=== PATIENT | female | born 1970 | race Caucasian/White ===

== ENCOUNTER 2017-05-01 14:40 | Day surgery (SDC) | payer OTHER ==
--- NOTE | ~2017-05-01 | OP ---
PATIENT NAME: ANA LILIA LEWIS MEDICAL RECORD: [id number] :72 LOCATION:D.FORMERLY [facility] ADMISSION DATE: SURGEON: VICENTE TOUSSAINT MD DATE OF OPERATION: 05/01/2017 SURGEON: Vicente Toussaint MD ANESTHESIA: TIVA by John Lloyd CRNA PREOPERATIVE DIAGNOSIS: Right ureteropelvic junction 9-mm stone. FINDINGS: Right staghorn radiodense renal stone. Left renal stones times 2, radiodense. PROCEDURES: Cystoscopy and right ureteral stent insertion. COMPLICATIONS: None. ESTIMATED BLOOD LOSS: None. CLINICAL HISTORY: This is a 47-year-old female from [place], who has a prior history of kidney stones. She has been complaining of right upper quadrant and right flank pain for the past 3 days on a continuous basis. She came to the Emergency Room today and an ultrasound of the gallbladder was performed by the Emergency Room physician. This ultrasound did not show any gallstones in the gallbladder. The gallbladder was entirely normal. It did show right hydronephrosis and a possible 9-mm stone obstructing the right UP junction. She comes now to have a right ureteral stent inserted. test was obtained and she is not . She was given Ancef IV operations expert to the OR. DESCRIPTION OF PROCEDURE: The patient was given IV sedation. She was placed in the dorsal lithotomy position and prepped and draped. Fluoroscopy revealed a prior back surgery with Christensen rods along extensive areas of the thoracic spine. Radiodense renal stones were seen with a large cluster on the right side forming a large staghorn calculus and 2 large radiodense stones in the left kidney. Going into the bladder, she had single ureteral orifices. 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 We inserted an open-ended right ureteral catheter and a retrograde pyelogram was performed with diluted contrast. This showed the stone to be within the renal pelvis. We inserted the guidewire through the lumen of the open-ended ureteral catheter. We then removed the ureteral catheter, leaving the guidewire in place. Over the guidewire, we inserted a 6-Telugu x 22 cm right ureteral stent. Once the stent was in correct position, the guidewire was completely removed. The proximal end was seen to coil within the renal pelvis. The distal end was pushed into the bladder using a pusher. The string on the distal end of the stent is maintained. We drained the bladder through the cystoscope and then removed the scope entirely. The string was taped to the suprapubic area with a piece of Tegaderm. She will require a CT scan of the kidneys as an outpatient and most likely she will require a percutaneous nephrolithotomy in the near future. TRANSINT:[id number] Voice Confirmation ID: [id number] DOCUMENT ID: [id number] OPERATIVE REPORT [id number] ANA LILIA LEWIS ROBERT S MD CC: [id number] DICTATION DATE: 05/01/172119 [employer] SUPERVISOR: 05/02/17 0059 [facility] 05/02/17 [facility] [address] [place] [address]
[2017-05-01 15:08] LABS: BASOPHILS 0.2 % (0-2); EOSINOPHILS 0.4 % (0-7); HEMOGLOBIN 14.3 g/dL (12-16); IMMATURE GRANULOCYTES 0.3 % (0-5); LYMPHOCYTES 18.6 % (15-50); MCV 91.1 fL (80.0-100.0); MEAN PLATELET VOLUME 9.9 fL (7.4-10.4); MONOCYTES 8.1 % (2-11); NEUTROPHILS 72.4 % (40-80); PLATELET COUNT 259 10x3/uL (130-400); RBC 4.61 10x6/uL (4.00-5.40); RDW 12.3 % (11.5-14.5); WBC 10.2 10x3/uL (4.8-10.8)
[2017-05-01 15:17] LABS: ALBUMIN 3.6 g/dL (3.4-5.0); ANION GAP 12.4 mmol/L (8-16); BILIRUBIN - TOTAL 0.78 mg/dL (0.2-1.3); CALCIUM 9.6 mg/dL (8.5-10.1); CARBON DIOXIDE 27.9 mmol/L (21.0-32.0); CREATININE - SERUM 1.1 mg/dL (0.6-1.3); POTASSIUM - SERUM 3.3 mmol/L (3.5-5.1); PROTEIN - SERUM 8.4 g/dL (6.4-8.2)
[2017-05-01 15:43] LABS: APPEARANCE CLEAR (CLEAR); BILIRUBIN NEGATIVE (NEGATIVE); COLOR YELLOW (YELLOW); GLUCOSE NEGATIVE (NEGATIVE); KETONE NEGATIVE (NEGATIVE); LEUKOCYTE ESTERASE 2+ (NEGATIVE); NITRITE NEGATIVE (NEGATIVE); PROTEIN TRACE mg/dL (NEGATIVE); UROBILINOGEN NORMAL (NORMAL)
[2017-05-01 15:47] LABS: WHITE CELLS - URINE 25-50 /hpf (0-5)
[2017-05-01 15:48] LABS: BACTERIA MANY /hpf (NONE SEEN); EPITHELIAL CELLS 0-5 /hpf (0-5); MUCUS <1+ /lpf (NONE SEEN)
[2017-05-01 21:02] LABS: HCG SERUM NEGATIVE (NEGATIVE)
[2017-05-01 21:55] VITALS: BP 144/88
--- NOTE | 2017-05-01 23:46 | NUR ---
REC'D 2134 VIA BED FROM RECOVERY ROOM. AA0 X3 IV NS INFUSING RIGHT WRIST AT KVO,DENIES PAIN STATES JUST HAVING SOME BURNING SENSATION.2330 UP BATHROOM VOIDED LGE MATTHEW CHU. BLOOD TINGED URINE WITHOUT DIFFICULTY.2345)IV DC'D,DISCHARGE INSTRUCTIONS AND TWO SCRIPTS GIVEN.REFUSED WHEELCHAIR AMBULATED WITH AND NURSE AND TO CAR TOLERATED WELL
== END 2017-05-02 00:03 | disposition home or self-care (01) ==
LOC: D.SDCHOLD 14:40 → D.ER 14:40 → D.OPS 14:40 → EDSTATUS 17:27 → D.SDCHOLD 17:27 → D.MS 21:39 → D.OPS 05-02 00:03
PROVIDERS: Anesthesiology; Emergency Medicine
DX: N20.1 Calculus of ureter (principal); R10.11 Right upper quadrant pain; Z01.812 Encounter for preprocedural laboratory examination

== ENCOUNTER → 2017-05-08 08:15 | Outpatient (CLI) | payer OTHER | END | disposition home or self-care (01) | LOC: D.CT 08:15 | DX: N20.0 Calculus of kidney (principal) ==

== ENCOUNTER 2017-05-22 19:30 | Day surgery (SDC) | payer OTHER ==
--- NOTE | ~2017-05-22 | HEMODYNAMI ---
PATIENT:ANA LILIA LEWIS MEDICAL RECORD: [id number] : 72 LOCATION:[facility] ADMISSION DATE: 05/22/17 Generatedon:05/22/201712:05 Patient name: ANA LILIA LEWIS Patient #: [id number] SSN: DO B: 1970 Date of study: 05/22/2017 Page: Of Hemodynamic Procedure Report Patient Data Patient Demographics Procedure consent was obtained First Name: ANA LILIA Gender: Female Last Name: JOSHUA : 1970 Middle Initial: A Age: 47 year(s) Patient #: [id number] Race: Additional ID: [id number] Contact details [address]: [address] [place] [address] State: [place] City: [place] Zip code: [address] Admission Admission Data Admission Date: 05/22/2017 Admission Time: 8:32 Procedure Procedure Types Cath Procedure Peripheral Cath Diagnostic Procedure Nephro Nephrostomy Tubes Procedure Description Procedure Date Procedure Date: 05/22/2017 Procedure Start Time: 11:17 Procedure Staff Name Function Miles Andino RT Monitor Matias Ng MD Performing Physician Lydai Alvarez RT Scrub Sneha Bueno RN Nurse Asha Sharif RN Nurse Procedure Data Cath Procedure Fluoroscopy Diagnostic fluoroscopy Total fluoroscopy Time: time: 13.4 min 13.4 min Diagnostic fluoroscopy Total fluoroscopy dose: 259 dose: 259 mGy mGy Contrast Material Contrast Material Type Amount (ml) Isovue 300 20 Procedure Medications Medication Administration Route Dosage Versed I.V. 1 mg Fentanyl I.V. 50 mcg Versed I.V. 1 mg Fentanyl I.V. 50 mcg Versed I.V. 1 mg Fentanyl I.V. 50 mcg Versed I.V. 1 mg Fentanyl I.V. 50 mcg Fentanyl I.V. 50 mcg Hemodynamics Rest Heart Rate: 77 (bpm) Snapshots Pre Cath Intra NCS Post Cath Vital Signs Time Heart Resp SPO2 etCO2 NIBP (mmHg) Rhythm Pain Sedation Rate (ipm) (%) (mmHg) Status Level (bpm) 10:46:28 77 16 100 29.2 158/94(121) NSR 0 (11) 10(A) , No pain 10:50:48 72 18 100 30 162/87(141) NSR 0 (11) 10(A) , No pain 10:55:00 79 12 100 30.7 138/95(121) NSR 0 (11) 10(A) , No pain 10:59:10 78 16 100 23.2 146/97(130) NSR 0 (11) 10(A) , No pain 11:03:32 80 16 99 25.5 148/69(132) NSR 0 (11) 10(A) , No pain 11:07:43 83 13 99 27 151/95(119) NSR 0 (11) 10(A) , No pain 11:12:01 90 6 99 15 147/118(134) NSR 0 (11) 10(A) , No pain 11:16:19 86 16 100 28.5 149/88(120) NSR 0 (11) 10(A) , No pain 11:20:35 84 19 99 26.2 146/92(114) NSR 0 (11) 10(A) , No pain 11:24:44 80 12 97 26.2 118/82(98) NSR 0 (11) 10(A) , No pain 11:29:48 71 9 96 33.8 113/79(100) NSR 0 (11) 10(A) , No pain 11:34:02 70 8 96 34.5 112/75(91) NSR 0 (11) 10(A) , No pain 11:38:10 66 9 96 30 117/75(91) NSR 0 (11) 10(A) , No pain 11:42:17 73 7 96 37.5 106/78(98) NSR 0 (11) 10(A) , No pain 11:47:10 74 9 97 9.7 124/70(108) NSR 0 (11) 10(A) , No pain 11:51:18 80 6 95 0 127/74(86) NSR 0 (11) 10(A) , No pain 11:55:30 81 9 96 36 118/74(96) NSR 0 (11) 10(A) , No pain 11:59:38 83 8 97 36.8 116/77(111) NSR 0 (11) 10(A) , No pain 12:03:44 80 8 97 39 113/77(105) NSR 0 (11) 10(A) , No pain Medications Time Medication Route Dose Verified Delivered Reason Notes Effectivene ss by by 11:20:37 Versed I.V. 1 mg Matias Sneha for Burda, Myles RN sedation 11:20:51 Fentanyl I.V. 50 Matias Sneha for mcg Burda, Myles RN sedation 11:22:55 Versed I.V. 1 mg Matias Sneha for Burda, Myles RN sedation 11:23:08 Fentanyl I.V. 50 Matias Sneha for mcg Burda, Myles RN sedation 11:35:53 Versed I.V. 1 mg Matias Sneha for Burda, Myles RN sedation 11:36:07 Fentanyl I.V. 50 Matias Sneha for mcg Burda, Myles RN sedation 11:48:08 Versed I.V. 1 mg Matias Sneha for Burda, Myles RN sedation 11:48:18 Fentanyl I.V. 50 Matias Sneha for mcg Burda, Myles RN sedation 11:57:24 Fentanyl I.V. 50 Matias Sneha for mcg Burda, Myles RN sedation Procedure Log Time Note 10:39:00 Time tracking: Regular hours 10:39:14 Plan of Care:Hemodynamics will remain stable., Cardiac rhythm will remain stable., Comfort level will be maintained., Respiratory function will remain adequate., Patient/ family verbilizes understanding of procedure., Procedure tolerated without complication., Recovers from procedure without complications.. 10:39:20 Patient received from Outpatients to IR Alert and oriented. Tansferred to table in Prone position. 10:39:21 Correct patient and procedure confirmed by team. 10:39:25 Signed procedure consent form obtained from patient. 10:39:26 ECG and BP/O2 sat monitors applied to patient. 10:39:27 Full Disclosure recording started 10:39:28 - 10:39:32 H&P Date Dictated: 05/22/2017 H&P Addendum completed by physician on da y of procedure. (MUST COMPLETE FOR ALL OUTPATIENTS). 10:39:33 Pre-op teaching completed and patient verbalized understanding. 10:39:33 Pre-procedure instructions explained to patient. 10:39:34 Family in waiting room. 10:39:36 Patient NPO since Midnight. 10:39:42 Is the patient allergic to Iodine/contrast media? No. 10:39:51 Is patient on blood thinner?No 10:39:52 Patient diabetic? No. 10:39:54 ----Pre-sedation anethsthesia assessment.---- 10:39:54 - 10:39:57 Previous problem with sedation/anesthesia? No ? 10:39:58 Snore? No 10:39:59 Sleep apnea? No 10:40:00 Deviated septum? No 10:40:02 Opens mouth fully? No 10:40:03 Sticks out tongue? No 10:40:05 Airway obstruction? No ? 10:40:07 Dentures? No ? 10:40:11 Use device set IR Diagnostic 10:40:13 Sterile Angiographic Pack opened to sterile field. 10:40:14 Bag Decanter opened to sterile field. 10:40:47 Sharps counted by scrub and verified by R.N. 10:40:48 Alarms reviewed by R. N. 10:41:01 Right abdomen area was prepped with chlora-prep and draped in sterile fashion 10:45:20 Vital chart was started 10:45:21 Baseline sample Acquired. 10:45:26 Rhythm: sinus rhythm 10:45:39 Patient pain scale 0/10 no pain. 11:16:52 --------ALL STOP TIME OUT------ 11:16:52 Physician arrived 11:16:53 Final Timeout: patient, procedure, and site verified with staff and physician. All members of the team are in agreement. 11:16:57 Right abdomen site verified by team. 11:17:13 Physical assessment completed. ASA score P 2 - A patient with mild systemic disease as per Sneha Bueno RN. 11:17:17 Sedation plan: IV Moderate Sedation Versed, Fentanyl 11:17:32 Procedure started. 11:17:37 Local anesthetic to Abdominal area with Lidocaine 1% by Matias Ng MD.INITIAL ACCESS ONLY 11:17:47 Terumo Angled SS 180cm glide wire opened to sterile field. 11:17:50 CHIBA 20 X 15 needle opened to sterile field. 11:17:51 KIT, INTRODUCER ACCUSTICK II W/C opened to sterile field. 11:20:37 Versed 1 mg I.V. was administered by Sneha Bueon RN; for sedation; 11:20:51 Fentanyl 50 mcg I.V. was administered by Sneha Bueno RN; for sedation ; 11:22:55 Versed 1 mg I.V. was administered by Sneha Bueno RN; for sedation; 11:23:08 Fentanyl 50 mcg I.V. was administered by Sneha Bueno RN; for sedation ; 11:28:01 Full Disclosure recording stopped 11:28:47 Vital chart was started 11:33:14 EV3 NITINOL .018 80CM guide wire opened to sterile field. 11:35:53 Versed 1 mg I.V. was administered by Sneha Bueno RN; for sedation; 11:36:07 Fentanyl 50 mcg I.V. was administered by Sneha Bueno RN; for sedation ; 11:37:24 Terumo 5FR STRAIGHT 65CM glide catheter opened to sterile field. 11:37:26 DILATOR, VESSEL 4/20 opened to sterile field. 11:39:18 KIT, INTRODUCER ACCUSTICK II W/C opened to sterile field. 11:45:42 Terumo ANGLE 180L glide wire opened to sterile field. 11:45:55 Terumo TORQUE DEVICE PLASTIC .038 opened to sterile field. 11:48:08 Versed 1 mg I.V. was administered by Sneha Bueno RN; for sedation; 11:48:18 Fentanyl 50 mcg I.V. was administered by Sneha Bueno RN; for sedation ; 11:51:41 Terumo ADVANTAGE 260CM glide wire opened to sterile field. 11:53:22 Terumo 5FR ANGLED 65CM glide catheter opened to sterile field. 11:57:21 Procedure ended.(Physican Out) 11:57:24 Fentanyl 50 mcg I.V. was administered by Sneha Bueno RN; for sedation ; 11:58:01 Fluoroscopy time 13.40 minutes. 11:58:06 Fluoroscopy dose: 259 mGy 11:58:06 Flurop Dose total: 259 11:59:28 Contrast amount:Isovue 300 20ml. 12:01:04 Sharps counted by scrub and verified by R.N. 12:01:06 Insertion/operative site no bleeding no hematoma. 12:01:11 Post-op/insertion site Right Abdominal area dressed using a 4 x 4 and Tegaderm. 12:01:13 Post Procedure Pulses reassessed and unchanged 12:01:33 Post-procedure physical assessment completed. ASA score P 2 - A patient with mild systemic disease as per Matias Ng MD. 12:01:36 Post procedure instruction explained to patient.Patient verbalizes understanding. 12:01:40 Procedure and supply charges have been captured, reviewed, submitted an d are correct. 12:04:54 Report given to Outpatients. 12:04:57 Patient transfered to Outpatients with Bed. 12:05:20 Vital chart was stopped Device Usage Item Name Manufacture Quantity Catalog Hospital Part Current Minimal Lot# / Number Charge Number Stock Stock Serial# Code Sterile Cardinal 1 [id number] 5 Angiographic Health Pack Bag Decanter Microtek 1 [id number] 05002 445366 [employer] Terumo Terumo 1 [id number] 649298 207803 5 Angled SS 180cm glide wire CHIBA 20 X [employer] 1 [id number] 387983 564134 5 15 needle KIT, [place] 2 [id number] 389437 888828 170738 5 INTRODUCER Scientific ACCUSTICK II W/C EV3 NITINOL Ev3 1 [id number] 491636 400850 5 [id number] .018 80CM guide wire Terumo 5FR Terumo 1 CG505 272782 314934 5 STRAIGHT 65CM glide catheter DILATOR, [employer] 1 [id number] 362691 85545 106647 5 [id number] VESSEL 4/20 Terumo ANGLE Terumo 1 [id number] 782150 171648 516732 5 180L glide wire Terumo [place] 1 [id number] 048278 414697 598738 5 TORQUE Scientific DEVICE PLASTIC .038 Terumo Terumo 1 [id number] 650908 597322 5 ADVANTAGE 260CM glide wire Terumo 5FR Terumo 1 CG507 881020 936664 5 ANGLED 65CM glide catheter Signature Audit [place] Stage Time Signature Unsigned Intra-Procedure 05/22/2017 Miles 12:05:18 PM Thu RT (R) (CV) Signatures Monitor : Miles Signature : Thu RT Date : Time : [address] [address]
[2017-05-22 09:42] VITALS: BP 124/89; BMI 22.0
[2017-05-22 09:55] LABS: BASOPHILS 0.5 % (0-2); EOSINOPHILS 1.2 % (0-7); HEMATOCRIT 39.9 % (36.0-48.0); HEMOGLOBIN 13.6 g/dL (12-16); IMMATURE GRANULOCYTES 0.2 % (0-5); LYMPHOCYTES 35.8 % (15-50); MCH 30.4 pg (26.0-34.0); MCHC 34.1 g/dL (31.0-37.0); MCV 89.3 fL (80.0-100.0); MEAN PLATELET VOLUME 9.7 fL (7.4-10.4); MONOCYTES 8.1 % (2-11); NEUTROPHILS 54.2 % (40-80); PLATELET COUNT 289 10x3/uL (130-400); RBC 4.47 10x6/uL (4.00-5.40); RDW 12.4 % (11.5-14.5); WBC 4.3 10x3/uL (4.8-10.8)
[2017-05-22 10:03] LABS: HCG URINE NEGATIVE (NEGATIVE)
[2017-05-22 10:06] LABS: APTT 26.5 SECONDS (22.8-39.4); CALC OSMOLALITY 278 mosm/kg (275-300); CALCIUM 9.2 mg/dL (8.5-10.1); CHLORIDE - SERUM 104 mmol/L (98-107); CREATININE - SERUM 0.8 mg/dL (0.6-1.3); GLUCOSE 88 mg/dL (74-106); INR 1.07 (0.85-1.17); POTASSIUM - SERUM 3.6 mmol/L (3.5-5.1); PROTIME 13.8 SECONDS (11.6-15.0); SODIUM 139 mmol/L (136-145); UREA NITROGEN 19 mg/dL (7-18); eGFR NON AFRICAN AMERICAN 82 mL/min (90-120)
--- NOTE | 2017-05-22 14:58 | NUR ---
RESTING WITH EYES CLOSED RESP EVEN ,IV INFUSING, FAMILY AT BEDSIDE WAITING TO GO TO SURGERY, NEOHRO TUBE TO RIGHT FLANK, WITH DRESSING C/D/I
[~2017-05-22 19:30] MED LIST: BAYER CHEWABLE81 MG PO; FLOMAX0.4 MG PO; HYDROCODON-ACE1 EAC7 PO; LEVOTHYROXINE50 MCG PO; MAXALT10 MG PO
--- NOTE | 2017-05-22 20:52 | NUR ---
TO OR VIA BED DRSG. RIGHT FLANK INTACT WITH ONE SMALL SPECK DRY DARK RED BLOODY OBSERVED NO FRESH DRAINAGE NOTED
[2017-05-23 03:47] VITALS: BMI 22.2
[2017-05-23 04:00] VITALS: BP 107/63
--- NOTE | 2017-05-23 07:00 | NUR ---
REPORT RECIEVED ASSUMED CARE. PATIENT IN BED WITH IV INTACT. NO COMPLAINTS AT THIS TIME. CALL LIGHT WITHIN REACH.
[2017-05-23 08:06] VITALS: BP 121/66
--- NOTE | 2017-05-23 08:41 | NUR ---
SCD'S ON BILATERAL LE
--- NOTE | 2017-05-23 09:22 | OP ---
PATIENT NAME: ANA LILIA LEWIS MEDICAL RECORD: [id number] :72 LOCATION:D.[facility] ADMISSION DATE:05/22/17 SURGEON: ANSHUL TOUSSAINT MD DATE OF OPERATION: 05/22/2017 SURGEON: Dr. Anshul Toussaint. ANESTHESIA: General anesthesia by Jeff Shaikh CRNA. PREOPERATIVE DIAGNOSIS: Multiple right renal stones about 1 cm each times 6. FINDINGS: Multiple radiodense large caliceal stones about 6, about 1 cm each. PROCEDURES: Right percutaneous nephrolithotomy (PCNL). SPECIMENS: Stones. ESTIMATED BLOOD LOSS: Minimal. CLINICAL HISTORY: This is a 47-year-old female, who presented with right flank pain. She had an ultrasound of the kidney, which showed hydronephrosis due to a stone obstructing the UP junction. She went to have a right ureteral stent inserted with the view to doing lithotripsy in the future. However, at the time of insertion of lithotripsy, we found that her right kidney was studded with multiple stones in the calices, each about 1 cm in size. Also, the left kidney had 2 large stones, the largest being about [address] A [address] scan was performed and this confirmed the multiplicity of stones in the calices and bilateral stone present. Because of the large stone burden, we are treating the right kidney with right percutaneous nephrolithotomy today. In the future, she will need a left percutaneous nephrolithotomy to clean out the left kidney. PAST MEDICAL HISTORY: Significant for scoliosis and she had quite significant spinal fusion performed at age 15. She is not allergic to any medications. She was covered perioperatively with Ancef IV. Earlier this morning, she went to the interventional radiology and she had insertion of a right nephroureteral access to her lower pole parul adjacent to a very large stone there. We are now going to proceed with the percutaneous nephrolithotomy. DESCRIPTION OF PROCEDURE: The patient was given induction of general anesthesia in supine position on the stretcher. Her indwelling ureteral stent was removed by pulling on the string, which was still taped to the suprapubic area. The stent was entirely removed. I performed cystoscopy to bring out the end of the nephroureteral stent out of the urethra. The aim was that my wire that I would insert from above downward would come out of the urethra and I would clamped the distal end of the wire at the urethral level to prevent loss of the access. Once the nephroureteral stent was placed out of the urethra, we inserted a Rubi catheter to bag drainage for the duration of the case. The patient was then turned into prone position on the Evelio frame. All of the pressure points were padded. She was then prepped and draped. We used a craniotomy draped through a small hole, in which we pulled through the nephroureteral access catheter. An Amplatz Super Stiff wire was placed down the access catheter. Instead of going out of the urethra; however, the access catheter pulled back into the bladder and the nephroureteral wire ended coiling up in the bladder. At this point, we had to OPERATIVE REPORT [id number] ANA LILIA LEWIS proceed in the traditional way without a clamp on the wire outside of the urethra. The nephroureteral catheter was entirely removed and discarded. A 1-cm incision was made on either side of the Super Stiff wire using a #15 blade. A dual-lumen catheter was then placed over the wire and down the proximal ureter. Through the second lumen, a Sensor wire was placed down into the bladder level. Once the [address], the dual lumen catheter was entirely removed, leaving the 2 wires in position. The sensor wire was then clamped to the drapes to act as a safety wire to maintain our access. We worked over the Super Stiff wire. The NephroMax tract dilation balloon was placed over the Super Stiff wire. The balloon was inflated to 20 atmospheres of pressure and then the working sheath was placed over the balloon. The working sheath has a 30-Icelandic circumference internally. The balloon was then deflated and removed entirely, leaving the working sheath in place. We then put the nephroscope. Upon entering the kidney with the nephroscope, we immediately saw 9 mm size stones in the calyx. We were able to put a grasping forceps around this and remove it whole the specimen. Multiple stones were seen in the lower pole calyx. We placed the Maltese LithoClast with the ultrasonic probe and used the ultrasonic modality to break up the stones. The LithoClast also employs suction to remove all the broken pieces out of the kidney. In this way, we cleaned up the lower pole parul. In turn, we went from parul to parul visually looking for stones and also using fluoroscopy to verify the location of radiodensities. Eventually, all of the stones were cleaned out radiographically and also under direct vision. During the process in order to get in some of the calices, we had to angulate the scope quite significantly and there is some renal parenchymal laceration, which will spontaneously healed, but the laceration caused some bleeding, which obscured our vision towards the end of the case. Once we could no longer find any further stones to removed, then the scope was removed. A 24-Icelandic Malecot nephrostomy tube was placed down over the Super Stiff wire into the renal pelvis. The stylet from the Malecot nephrostomy tube was removed allowing the Malecot wings to expand in the renal pelvis. The stylet and the Super Stiff wire were entirely removed. As well, the working sheath was removed. This left the nephrostomy tube in place. Once fluoroscopy confirmed that the nephrostomy tube was within the renal pelvis, the safety wire was also entirely removed. A 2-0 nylon stitch was used to close the incision around the nephrostomy tube. A simple interrupted suture was used. A drain suture of 2-0 nylon was also used to hold the drain in place. A 4x4 gauze was used as a dressing on the nephrostomy tube. The nephrostomy tube was put to bag drainage of a Rubi catheter bag. The patient will be kept overnight for observation and pain control. TRANSINT:[id number] Voice Confirmation ID: [id number] DOCUMENT ID: [id number] ANSHUL TOUSSAINT MD at 0922 CC: [id number] DICTATION DATE: 05/22/172326 [employer] PROJECT MANAGER: 05/23/17 0015 ADM IN [place] [id number] [place] [id number]
[2017-05-23 10:13] LABS: BASOPHILS 0.1 % (0-2); EOSINOPHILS 0.1 % (0-7); HEMATOCRIT 35.1 % (36.0-48.0); HEMOGLOBIN 11.8 g/dL (12-16); IMMATURE GRANULOCYTES 0.3 % (0-5); LYMPHOCYTES 9.8 % (15-50); MCH 30.5 pg (26.0-34.0); MCHC 33.6 g/dL (31.0-37.0); MCV 90.7 fL (80.0-100.0); MEAN PLATELET VOLUME 9.6 fL (7.4-10.4); MONOCYTES 5.4 % (2-11); NEUTROPHILS 84.3 % (40-80); PLATELET COUNT 264 10x3/uL (130-400); RBC 3.87 10x6/uL (4.00-5.40); RDW 12.5 % (11.5-14.5); WBC 9.5 10x3/uL (4.8-10.8)
[2017-05-23 10:27] LABS: CALC OSMOLALITY 276 mosm/kg (275-300); CALCIUM 8.5 mg/dL (8.5-10.1); CARBON DIOXIDE 23.8 mmol/L (21.0-32.0); CHLORIDE - SERUM 105 mmol/L (98-107); CREATININE - SERUM 0.8 mg/dL (0.6-1.3); GLUCOSE 106 mg/dL (74-106); SODIUM 138 mmol/L (136-145); UREA NITROGEN 15 mg/dL (7-18); eGFR NON AFRICAN AMERICAN 82 mL/min (90-120)
--- NOTE | 2017-05-23 18:55 | NUR ---
PATIENT IN BED WITH IV INTACT. NEPHROSTOMY INTACT. NO COMPLAINTS. FAMILY AT BEDSIDE. CALL LIGHT WITHIN REACH.
[2017-05-23 20:00] VITALS: BP 121/75
--- NOTE | 2017-05-23 22:49 | NUR ---
REC'D SITTING UP ON SIDE OF THE BED. ALERT AND ORIENTED X4. REPORTED PAIN 4/10. WILL ADMIN PAIN MEDS PRESCRIBED. DENIED FURTHER NEEDS AT THIS TIME. INSTRUCTED TO CALL IF NEEDED ANYTHING, VERBALIZED UNDERSTANDING. AT BEDSIDE. NO DISTRESS NOTED. WILL CONT TO MONITOR. BED LOW, LOCKED, CALL LIGHT IN REACH.
--- NOTE | 2017-05-23 23:47 | NUR ---
RECIEVED REPORT. ASSUMED PT CARE.
[2017-05-24] VITALS: BP 112/69
[2017-05-24 04:00] VITALS: BP 120/75
--- NOTE | 2017-05-24 07:39 | NUR ---
LYING SUPINE WITH WITH HOB FLAT. RESPIRATIONS EVEN AND NON LABORED. NEPHROSTOMY TUBE PATENT TO RIGHT FLANK. PT DENIES NEEDS AT THIS TIME. BED IN LOWEST POSITION WITH SRX2 AND WHEELS LOCKED. CALL LIGHT IN REACH, WILL CONTINUE WITH PLAN OF CARE.
--- NOTE | 2017-05-24 09:22 | NUR ---
PRN ZOFRAN ADMINISTERED FOR VOMITING EPISODE THAT PT FEELS IS RELATED TO THE JUICE SHE DRANK WITH BREAKFAST. AT BEDSIDE. DENIES NEEDS AT THIS TIME. WILL CONTINUE WITH PLAN OF CARE.
[2017-05-24] MEDS ORDERED: ZOFRAN4 MG PO (10:53)
[2017-05-24] MEDS ORDERED: HYDROCODON-ACE1 EAC7 PO (10:53)
--- NOTE | 2017-05-24 11:18 | NUR ---
IV TO LEFT HAND D/C WITH CATH TIP INTACT. DRESSING CARE REVIEWED WITH PT AND SPOUSE. DISCHARGE INSTRUCTIONS REVIEWED WELL HOW TO EMPTY DRAINAGE BAG. PT REFUSES HOME HEALTH OR FLU VACCINE. WILL D/C HOME.
[2017-06-01 17:11] LABS: CALCULI - CA OXALATE DIHYDRATE 40 % (()); CALCULI - CA OXALATE MONOHYDR 45 % (()); CALCULI - CALCIUM PHOSPHATE 15 % (()); CALCULI - COLOR Tan (()); CALCULI - COMMENT Note: (())
== END 2017-05-24 11:43 | disposition home or self-care (01) ==
LOC: OBSVTIME → D.OPS 19:30 → D.MS 20:01 → D.OPS 20:01 → D.MS 20:02 → D.OPS 20:02 → D.MS 20:03 → D.OPS 20:03 → OBSVTIME 20:03 → D.MS 20:03 → D.OPS 20:03 → D.MS 05-24 11:43 → D.OPS 05-24 11:43 → D.MS 05-24 11:43
PROVIDERS: General Practice; Urology
DX: N20.0 Calculus of kidney (principal)

== ENCOUNTER 2017-07-19 05:36 | Day surgery (SDC) | payer OTHER ==
[2017-07-18 15:33] LABS: HEMATOCRIT 41.3 % (36.0-48.0); HEMOGLOBIN 13.9 g/dL (12-16); MCH 30.3 pg (26.0-34.0); MCHC 33.7 g/dL (31.0-37.0); MEAN PLATELET VOLUME 9.7 fL (7.4-10.4); RBC 4.59 10x6/uL (4.00-5.40); RDW 12.7 % (11.5-14.5); WBC 5.9 10x3/uL (4.8-10.8)
[~2017-07-19] VITALS: Ht 157.5 cm; Wt 54.5 kg
--- NOTE | ~2017-07-19 | HEMODYNAMI ---
PATIENT:ANA LILIA LEWIS MEDICAL RECORD: [id number] : 72 LOCATION:[facility] ADMISSION DATE: 07/19/17 Generatedon:07/19/201710:16 Patient name: ANA LILIA LEWIS Patient #: [id number] SSN: DO B: 1970 Date of study: 07/19/2017 Page: Of Hemodynamic Procedure Report Patient Data Patient Demographics Procedure consent was obtained First Name: ANA LILIA Gender: Female Last Name: JOSHUA : 1970 Middle Initial: A Age: 47 year(s) Patient #: [id number] Race: Additional ID: [id number] Contact details [address]: [address] [place] [address] State: [place] City: [place] Zip code: [address] Admission Admission Data Admission Date: 07/19/2017 Admission Time: 5:36 Procedure Procedure Types Cath Procedure Peripheral Cath Diagnostic Procedure Miscellaneous Procedure Description Procedure Date Procedure Date: 07/19/2017 Procedure Start Time: 9:26 Procedure Staff Name Function Fab Parsons MD Performing Physician Miles Andino RT Monitor Lydia Alvarez RT Scrub Sneha Bueno RN Nurse Procedure Data Cath Procedure Fluoroscopy Diagnostic fluoroscopy Total fluoroscopy Time: time: 14.7 min 14.7 min Diagnostic fluoroscopy Total fluoroscopy dose: 0 dose: 0 mGy mGy Contrast Material Contrast Material Type Amount (ml) Isovue 300 15 Diagnostic catheters Device Type Used For End Catheter Placement Merit Impress KA 2 5Fr 40CM catheter Procedure Medications Medication Administration Route Dosage Fentanyl I.V. 50 mcg Heparin Flush Bag added to field 1 bags (1000units/500ml NS) Versed I.V. 1 mg Lidocaine 1% added to field Versed I.V. 1 mg Fentanyl I.V. 50 mcg unlisted medication 1 Hemodynamics Rest Heart Rate: 86 (bpm) Snapshots Pre Cath Intra NCS Post Cath Vital Signs Time Heart Resp SPO2 etCO2 NIBP (mmHg) Rhythm Pain Sedation Rate (ipm) (%) (mmHg) Status Level (bpm) 8:54:29 92 33 100 0 152/106(133) NSR 0 (11) 10(A) , No pain 8:59:22 89 21 100 33.3 172/106(145) NSR 0 (11) 10(A) , No pain 9:03:34 87 12 100 31.8 165/101(130) NSR 0 (11) 10(A) , No pain 9:07:52 86 19 100 31 163/101(135) NSR 0 (11) 10(A) , No pain 9:12:13 85 23 100 31.8 154/99(136) NSR 0 (11) 10(A) , No pain 9:16:24 83 15 100 33.3 150/103(127) NSR 0 (11) 10(A) , No pain 9:20:36 97 18 100 31.8 155/107(136) NSR 0 (11) 10(A) , No pain 9:24:52 90 16 99 31 167/104(135) NSR 0 (11) 10(A) , No pain 9:29:08 94 19 100 22.7 157/100(122) NSR 0 (11) 10(A) , No pain 9:33:22 84 12 100 34 139/96(113) NSR 0 (11) 10(A) , No pain 9:37:32 86 14 100 35.5 132/94(120) NSR 0 (11) 10(A) , No pain 9:41:40 79 11 100 35.5 144/91(114) NSR 0 (11) 10(A) , No pain 9:45:50 83 13 99 35.5 147/96(133) NSR 0 (11) 10(A) , No pain 9:50:02 84 14 99 35.5 151/96(139) NSR 0 (11) 10(A) , No pain 9:54:16 91 15 100 35.5 153/93(117) NSR 0 (11) 10(A) , No pain 9:58:30 97 14 100 34.8 160/106(138) NSR 0 (11) 10(A) , No pain 10:02:48 91 26 99 12.1 163/97(115) NSR 0 (11) 10(A) , No pain 10:07:10 84 14 99 30.2 165/85(127) NSR 0 (11) 10(A) , No pain 10:11:10 0 No Cuff NSR 0 (11) 10(A) , No pain Medications Time Medication Route Dose Verified Delivered Reason Notes Effecti veness by by 9:26:16 Fentanyl I.V. 50 Fab Sneha for mcg Issa Bueno RN sedation 9:26:31 Heparin Flush added 1 Bag to bags (1000units/500ml field NS) 9:26:32 Versed I.V. 1 mg Fab Hoover for Issa Bueno RN sedation 9:26:40 Lidocaine 1% added to field 9:30:04 Versed I.V. 1 mg Fab Sneha for Issa Bueno RN sedation 9:30:12 Fentanyl I.V. 50 Fab Sneha for mcg Issa Bueno RN sedation 9:41:18 cefepime ivpb 1gm Fab Bueno RN, MD Procedure Log Time Note 8:45:59 Miles Andino RT (R) (CV) sent for patient. Start room use. 8:46:19 Time tracking: Regular hours 8:46:24 Plan of Care:Hemodynamics will remain stable., Cardiac rhythm will remain stable., Comfort level will be maintained., Respiratory function will remain adequate., Patient/ family verbilizes understanding of procedure., Procedure tolerated without complication., Recovers from procedure without complications.. 8:46:33 Patient received from Outpatients to IR Alert and oriented. Tansferred to table in Prone position. 8:46:34 Correct patient and procedure confirmed by team. 8:46:35 Signed procedure consent form obtained from patient. 8:46:36 ECG and BP/O2 sat monitors applied to patient. 8:46:38 Full Disclosure recording started 8:46:38 - 8:46:41 H&P Date Dictated: 07/19/2017 Within 30 days and on chart.. 8:46:42 Pre-procedure instructions explained to patient. 8:46:43 Pre-op teaching completed and patient verbalized understanding. 8:46:44 Family in waiting room. 8:46:45 Patient NPO since Midnight. 8:46:50 Is the patient allergic to Iodine/contrast media? No. 8:46:51 Is patient on blood thinner?No 8:46:53 Patient diabetic? No. 8:46:55 - 8:46:55 ----Pre-sedation anethsthesia assessment.---- 8:46:58 Previous problem with sedation/anesthesia? No ? 8:46:59 Snore? Yes 8:47:00 Sleep apnea? No 8:47:03 Deviated septum? No 8:47:04 Opens mouth fully? Yes 8:47:05 Sticks out tongue? Yes 8:47:08 Airway obstruction? No ? 8:47:10 Dentures? No ? 8:47:17 Patient pain scale 0/10 no. 8:47:24 IV patent on arrival in right hand with 0.9% NaCl at [facility]. 8:47:31 Use device set IR Diagnostic 8:47:32 Bag Decanter (2002S) opened to sterile field. 8:47:32 Sterile Angiographic Pack opened to sterile field. 8:53:18 Vital chart was started 8:53:19 Baseline sample Acquired. 9:08:25 KIT, INTRODUCER ACCUSTICK II W/C opened to sterile field. 9:25:16 Physician arrived 9:25:16 --------ALL STOP TIME OUT------ 9:25:18 Final Timeout: patient, procedure, and site verified with staff and physician. All members of the team are in agreement. 9:25:23 Left abdomen site verified by team. 9:25:31 Sedation plan: IV Moderate Sedation Medication:Versed, Fentanyl 9:25:54 Procedure started. 9:26:16 Fentanyl 50 mcg I.V. was administered by Sneha Myles RN; for sedation ; 9:26:16 Local anesthetic to Abdominal area with Lidocaine 1% by Fab Parsons MD.INITIAL ACCESS ONLY 9:26:31 Heparin Flush Bag (1000units/500ml NS) 1 bags added to field was administered by ; ; 9:26:32 Versed 1 mg I.V. was administered by Sneha Bueno RN; for sedation; 9:26:40 Lidocaine 1% added to field was administered by ; ; 9:30:04 Versed 1 mg I.V. was administered by Sneha Bueno RN; for sedation; 9:30:12 Fentanyl 50 mcg I.V. was administered by Sneha Bueno RN; for sedation ; 9:38:40 Terumo ANGLE 180L glide wire opened to sterile field. 9:38:47 TORQUE DEVICE PLASTIC .038 ( TD01) opened to sterile field. 9:41:18 cefepime 1gm ivpb was administered by Sneha Bueno RN; ; 9:42:55 A LogLogic KA 2 5Fr 40CM catheter was advanced over the wire and used for . 9:53:17 Terumo GT DOUBLE ANGLE .018 glide wire opened to sterile field. 9:53:18 COPILOT Valve Control ([id number]) opened to sterile field. 9:58:14 CXI SUPPORT .018 150CM STR catheter opened to sterile field. 10:00:21 Terumo 5FR ANGLED 65CM glide catheter opened to sterile field. 10:04:15 Procedure ended.(Physican Out) 10:11:02 Vital chart was stopped 10:13:10 Fluoroscopy time 14.70 minutes. 10:14:34 Fluoroscopy dose: 0 mGy 10:14:34 Flurop Dose total: 0 10:14:38 Contrast amount:Isovue 300 15ml. 10:14:40 Sharps counted by scrub and verified by R.N. 10:14:41 Insertion/operative site no bleeding no hematoma. 10:14:57 Post-op/insertion site Left Abdominal area dressed using a 4 x 4 and Tegaderm. 10:15:03 Post Abdominal area:stable 10:15:08 Post procedure instruction explained to patient.Patient verbalizes understanding. 10:15:09 Procedure and supply charges have been captured, reviewed, submitted an d are correct. 10:15:51 Report given to Outpatients. 10:15:56 Patient transfered to Outpatients with Bed. Device Usage Item Name Manufacture Quantity Catalog Hospital Part Current Minima l Lot# / Number Charge Number Stock Stock Serial# Code Bag Decanter Microtek 1 [id number] 84119 [id number] 5 () Medical Inc. Sterile Cardinal 1 [id number] [id number] 5 Angiographic Health Pack KIT, Homer 1 [id number] 935134 073855 071635 5 INTRODUCER Scientific ACCUSTICK II W/C Terumo ANGLE Terumo 1 [id number] 898169 774509 160383 5 180L glide wire TORQUE Homer 1 TD01 546380 188872 767352 5 DEVICE Scientific PLASTIC .038 ( TD01) Merit Merit 1 [id number] 301444 867940 5 Impress KA 2 Medical 5Fr 40CM catheter Terumo GT Terumo 1 [id number] 572471 048169 5 732248 DOUBLE ANGLE .018 glide wire COPILOT Mcnair 1 [id number] 462717 066391 248727 5 Valve Vascular Control ([id number]) CXI SUPPORT Cook Medical 1 [id number] 326770 345507 313148 5 [id number] .018 150CM STR catheter Terumo 5FR Terumo 1 [id number] 806330 272993 5 ANGLED 65CM glide catheter Signature Audit Ann [place]bor Stage Time Signature Unsigned Intra-Procedure 07/19/2017 Miles 10:16:26 AM Shuffield RT (R) (CV) Signatures Monitor : Miles Signature : Reneeield RT Date : Time : [place] [id number] [place] [address]
[~2017-07-19 05:36] MED LIST changes: +ZOFRAN4 MG PO
[2017-07-19 07:38] LABS: APTT 25.2 SECONDS (22.8-39.4); INR 1.07 (0.85-1.17); PROTIME 13.5 SECONDS (11.6-15.0)
[2017-07-19 07:41] LABS: CALC OSMOLALITY 285 mosm/kg (275-300); CALCIUM 9.2 mg/dL (8.5-10.1); CARBON DIOXIDE 25.1 mmol/L (21.0-32.0); CHLORIDE - SERUM 106 mmol/L (98-107); CREATININE - SERUM 0.8 mg/dL (0.6-1.3); GLUCOSE 93 mg/dL (74-106); POTASSIUM - SERUM 3.9 mmol/L (3.5-5.1); SODIUM 142 mmol/L (136-145); UREA NITROGEN 20 mg/dL (7-18); eGFR NON AFRICAN AMERICAN 82 mL/min (90-120)
[2017-07-19 07:57] VITALS: BP 171/72; BMI 22.2
[2017-07-19 09:35] LABS: HCG URINE NEGATIVE (NEGATIVE)
--- NOTE | 2017-07-19 13:30 | NUR ---
CYSTO DONE PRIOR TO POSITIONING PRONE, ALL SAFETY MEASURES TAKEN PRESSURE POINTS PADDED AND SECURED NO IMPINGEMENTS NOTED, DR TOUSSAINT PRESENT FOR ALL, LASHON.
[2017-07-19 14:42] VITALS: BP 123/77
--- NOTE | 2017-07-19 14:45 | NUR ---
PT ADMITTED TO FLOOR FROM RECOVERY. NO SIGNS OF ACUTE DISTRESS. AT BEDSIDE. ASSESSMENT COMPLETE AT THIS TIME. BED IN LOWEST POSITION, SIDE RAILS UP X 2, CALL LIGHT WITHIN REACH. NO NEEDS VOICED AT THIS TIME.
[2017-07-19 14:47] VITALS: BP 123/77; Ht 157.5 cm; Wt 54.5 kg
[2017-07-19 20:00] VITALS: BP 130/70
--- NOTE | 2017-07-19 21:30 | NUR ---
PRN NORCO ADMINISTERED AT THIS TIME FOR PAIN. IV RIGHT HAND SALINE LOCKED. LEFT NEPHROSTOMY TUBE IN PLACE DRAINAGE TO CHARLES BAD AT BEDSIDE, DRSG C/D/I. PT DENIES ANY OTHER NEEDS AT THIS TIME. CALL LIGHT IN REACH, WILL CONTINUE WITH PLAN OF CARE.
[2017-07-20 04:00] VITALS: BP 107/77
--- NOTE | 2017-07-20 07:30 | NUR ---
ASSESSMENT COMPLETE. SL TO R HAND. L NEPHROSTOMY TUBE PATENT WITH BLOOD TINGED DRAINAGE TO CHARLES BAG.
--- NOTE | 2017-07-20 07:34 | NUR ---
COMPLAINING OF PAIN AND NAUSEA. MORPHINE AND ZOFRAN GIVEN SLOW IVP.
--- NOTE | 2017-07-20 08:04 | OP ---
PATIENT NAME: ANA LILIA LEWIS MEDICAL RECORD: [id number] :72 LOCATION:[id number] ADMISSION DATE: SURGEON: ANSHUL TOUSSAINT MD DATE OF OPERATION: 07/19/2017 DATE OF SURGERY: 07/19/2017 SURGEON: Anshul Toussaint MD ANESTHESIA: General anesthesia by Dr. Razo. PREOPERATIVE DIAGNOSIS: Left renal stone, 14 mm plus 7 mm. PROCEDURE: Left percutaneous nephrolithotomy, cystoscopy. FINDINGS: Radiodense renal stone, 14 mm plus 7 mm. SPECIMENS: Renal stone. ESTIMATED BLOOD LOSS: Minimal. CLINICAL HISTORY: This is a 47-year-old female, who has a history of bilateral renal stones. They are quite large in size. A few months ago, I removed a large kidney stone from the right kidney. This was via a percutaneous nephrolithotomy. She comes now to have her left-sided kidney stones removed. These are 14 mm and 7 mm. Her stone analysis from her previous stones showed that they are 85% calcium oxalate and 15% calcium phosphate. Earlier today, she went to the interventional radiology and she had a nephroureteral access into the left kidney placed by Dr. Parsons. This is a tube that goes through the skin into the kidney down the ureter and into the bladder. She comes now to have the remaining stones in the left kidney removed. She was covered with Ancef 2 grams IV mental retardation nurse to the OR. She has no medication allergies. DESCRIPTION OF PROCEDURE: The patient was given induction of general anesthesia while she was in supine position on her stretcher. The legs were then put into frogleg position and she was prepped and draped. Cystoscopy was performed and the nephroureteral catheter end in the bladder was pulled out of the urethra. This will allow a direct shot from our wires to be clamped in the area of the urethra distally. She was then turned into the prone position on the Evelio frame. All pressure points were padded. She was then prepped and draped. The nephroureteral catheter was accessed using an Amplatz Super Stiff wire. This wire was pushed until it came out through the urethra and then it was clamped with a hemostat. This allowed us to completely remove the nephroureteral access catheter, leaving the wire in place. The clamping of the wire prevents backwards migration and loss of access due to the wire moving. An incision was made at the skin level on either side of the wire. A dual-lumen catheter was then inserted down into the proximal ureter. Through the second lumen, a Sensor wire was placed down into the bladder. This wire actually followed the first wire out of the urethra. The second wire, the Sensor wire, was clamped to the drapes and acted as a safety wire. We worked over the Super Stiff wire. The dual lumen catheter was removed. We then inserted over the Super Stiff wire, a NephroMax balloon dilator. The balloon was inflated to 20 atmospheres of pressure and then a working sheath was slid over the balloon into the renal pelvis. We were then able to enter into the renal pelvis using a nephroscope. We immediately saw a large 14-mm stone. The Macedonian LithoClast in the ultrasonic OPERATIVE REPORT [id number] ANA LILIA LEWIS A mode was used to break the stone up into smaller pieces. These pieces were removed using the FeeX - [employer] of Fees Perc NCircle basket. These were sent to pathology as a dry specimen for stone analysis. The ultrasonic modality of the LithoClast also breaks the stones up and suctions them out. This allowed us to fully clean out the 14-mm stone in the renal pelvis. Fluoroscopy revealed that there was still the 7 mm stone hiding behind our sheath. Gradually, I pulled the sheath back and finally we identified the stone. It was removed using the Perc NCircle. Finally, fluoroscopy and nephroscopy verified that there were no further stones to be seen or obtained. At this point, the 24-Ukrainian Malecot nephrostomy tube was inserted into the renal pelvis. Once the nephrostomy tube was in correct position, the stilette was removed to allow the Malecot wings to expand. The working sheath was also completely removed. At this point, both of the wires were grasped at the urethral end and pulled distally and completely removed. The nephrostomy tube was sutured to the skin using 2-0 nylon. Dressings were applied and the nephrostomy tube was put to bag drainage. The patient will be placed for 23-hour observation. TRANSINT:[id number] Voice Confirmation ID: [id number] DOCUMENT ID: [id number] ANSHUL TOUSSAINT MD at 0804 CC: [id number] DICTATION DATE: 07/19/17 1350 ECOLOGICAL MODELER: 07/19/17 1522 [facility] [address] [place] [address]
[2017-07-20 08:33] VITALS: BP 148/86
[2017-07-20] MEDS ORDERED: NORCO 7.5/325 T1 TA1 PO (10:31)
--- NOTE | 2017-07-20 11:00 | NUR ---
DISCHARGE TEACHING GIVEN TO PATIENT AND . VOICED UNDERSTANDING. STATES THEY ARE COMFORTABLE WITH MEASURING AND RECORDING OUTPUT FROM NEPHROSTOMY TUBE. SCRIPT FOR NORCO GIVEN TO PATIENT AND URINAL FOR MEASUREMENT. SL REMOVED. CATHETER TIP INTACT.
--- NOTE | 2017-07-20 11:15 | NUR ---
DC'D HOME WITH . ESCORTED TO VEHICLE BY VOLUNTEER VIA WC WITH BELONGINGS.
== END 2017-07-20 11:15 | disposition home or self-care (01) ==
LOC: D.OPS 05:36 → D.MS 05:36 → D.OPS 08:00 → D.PAN 08:00 → D.OPS 09:00 → D.PAN 09:00 → D.MS 14:20 → D.OPS 07-20 11:15
PROVIDERS: Anesthesiology; Radiology Diagnostic Radiology; Urology
DX: N20.0 Calculus of kidney (principal); Z01.812 Encounter for preprocedural laboratory examination

== ENCOUNTER 2018-09-10 16:12 | Emergency (ER) | payer OTHER ==
[~2018-09-10] VITALS: Ht 157.5 cm; Wt 59.1 kg
[~2018-09-10 16:12] MED LIST changes: +NORCO 7.5/325 T1 TA1 PO
[2018-09-10 16:30] VITALS: Ht 157.5 cm; Wt 59.1 kg
[2018-09-10] MEDS ORDERED: ALTACE10 MG PO (16:32)
[2018-09-10 17:13] LABS: BASOPHILS 0.8 % (0-2); EOSINOPHILS 1.4 % (0-7); HEMATOCRIT 42.4 % (36.0-48.0); HEMOGLOBIN 14.4 g/dL (12-16); IMMATURE GRANULOCYTES 0.3 % (0-5); LYMPHOCYTES 41.2 % (15-50); MCH 31.2 pg (26.0-34.0); MCV 91.8 fL (80.0-100.0); MEAN PLATELET VOLUME 9.9 fL (7.4-10.4); MONOCYTES 7.9 % (2-11); NEUTROPHILS 48.4 % (40-80); PLATELET COUNT 296 10x3/uL (130-400); RBC 4.62 10x6/uL (4.00-5.40); RDW 12.7 % (11.5-14.5); WBC 6.5 10x3/uL (4.8-10.8)
[2018-09-10] MEDS ORDERED: FLUTICASONE PRO16 GM NASAL (17:56)
[2018-09-10] MEDS ORDERED: AUGMENTIN 875-11 TAB PO (17:56)
[2018-09-10 19:00] VITALS: BP 163/96
== END 2018-09-10 18:54 | disposition home or self-care (01) ==
LOC: D.ER 16:12
PROVIDERS: Family Medicine
DX: J01.90 Acute sinusitis, unspecified (principal); J40 Bronchitis, not specified as acute or chronic; M94.0 Chondrocostal junction syndrome [Tietze]; I10 Essential (primary) hypertension

== ENCOUNTER → 2021-02-02 09:21 | Outpatient (CLI) | payer OTHER ==
[2018-09-10 16:30] VITALS: BMI 23.8
[~2021-02-02 09:21] MED LIST changes: +ALTACE10 MG PO; +AUGMENTIN 875-11 TAB PO; +FLUTICASONE PRO16 GM NASAL
== END | disposition home or self-care (01) ==
LOC: D.CT 09:21
PROVIDERS: ATTEND Family Medicine
DX: N20.0 Calculus of kidney (principal)